=== PATIENT | female | born 1985 | race Caucasian/White ===

== ENCOUNTER → 2020-07-25 15:33 | Outpatient (CLI) | payer OTHER, SELFPAY ==
[2020-07-25] MEDS: COVID-19 VACC #1, MRNA(MOD) 100 MCG/0.5 ML VIAL IM (15:38)
== END ==
PROVIDERS: Visit Provider Internal Medicine
DX: Z23 Encounter for immunization (principal)
CPT/HCPCS: 0011A; 91301

== ENCOUNTER → 2020-08-22 15:47 | Outpatient (CLI) | payer OTHER, SELFPAY ==
[2020-08-22] MEDS: COVID-19 VACC #2, MRNA(MOD) 100 MCG/0.5 ML VIAL IM (16:00)
== END ==
PROVIDERS: Visit Provider Internal Medicine
DX: Z23 Encounter for immunization (principal)
CPT/HCPCS: 0012A; 91301

== ENCOUNTER → 2021-02-07 07:20 | Outpatient (CLI) | payer OTHER, SELFPAY | PROVIDERS: Visit Provider Physician Assistant | DX: R30.0 Dysuria (principal); R39.15 Urgency of urination | CPT/HCPCS: 87077; 87086; 87186 ==

== ENCOUNTER → 2022-05-13 11:45 | Outpatient (CLI) | payer OTHER, SELFPAY ==
[2022-05-13 13:09] LABS: Alanine Aminotransferase 18 IU/L (<35); Albumin 4.4 g/dL (3.5-5.0); Albumin Globulin Ratio 1.4 (1.0-2.8); Alkaline Phosphatase 47 U/L (38-126); Aspartate Aminotransferase 19 IU/L (14-36); Bilirubin Total 0.4 mg/dL (0.2-1.3); Bilirubin Unconjugated 0.3 mg/dL (0.0-1.1); Globulin 3.1 g/dL (1.7-4.1); HEMOLYSIS < 15 (0-50); Total Protein 7.5 g/dL (6.3-8.2)
== END ==
PROVIDERS: PCP Registered Nurse Diabetes Educator; Referring Provider Registered Nurse Diabetes Educator; Visit Provider Registered Nurse Diabetes Educator
DX: B35.1 Tinea unguium (principal)
CPT/HCPCS: 36415; 80076

== ENCOUNTER → 2023-10-16 20:12 | Outpatient (ROUT) | payer OTHER, SELFPAY | PROVIDERS: PCP Registered Nurse Diabetes Educator; Visit Provider Nurse Practitioner Family | DX: J02.9 Acute pharyngitis, unspecified (principal) | CPT/HCPCS: 87070 ==

== ENCOUNTER → 2024-05-17 19:27 | Outpatient (CLI) | payer BC, SELFPAY ==
[2024-05-17 20:09] LABS: Influenza A - CEPHEID Flu A NEGATIVE (NEGATIVE); Influenza B - CEPHEID Flu B NEGATIVE (NEGATIVE); Respiratory Syncytial Virus Negative (Negative)
[2024-05-17 20:10] LABS: COVID-19 CEPHEID 4-PLEX PCR Negative (Negative)
== END ==
PROVIDERS: PCP Registered Nurse Diabetes Educator; Visit Provider Student in an Organized Health Care Education/Training Program
DX: R05.8 Other specified cough (principal); R53.83 Other fatigue
CPT/HCPCS: 0241U

== ENCOUNTER → 2024-05-19 12:30 | Outpatient (CLI) | payer BC, SELFPAY ==
--- NOTE | 2024-05-19 12:31 | DI.RAD.S_ITS ---
PROCEDURE: XR CHEST 2V INDICATIONS: r/o PNA TECHNIQUE: 2 views of the chest were acquired. COMPARISON: None. FINDINGS: Surgical changes and devices: None. Lungs and pleura: Mild peribronchial thickening. No dense consolidation or pleural effusions. Mediastinum: Normal heart size Bones and chest wall: Unremarkable IMPRESSION: Mild peribronchial thickening likely viral infection. No consolidation or pleural effusion identified. Dictated by: Ethan Vargas M.D. on 05/19/2024 at 12:54 Approved by: Ethan Vargas M.D. on 05/19/2024 at 12:55
== END ==
PROVIDERS: PCP Registered Nurse Diabetes Educator; Referring Provider Student in an Organized Health Care Education/Training Program; Visit Provider Student in an Organized Health Care Education/Training Program
DX: R05.1 Acute cough (principal)
CPT/HCPCS: 71046

== ENCOUNTER → 2024-07-12 18:09 | Outpatient (CLI) | payer OTHER, SELFPAY | PROVIDERS: PCP Registered Nurse Diabetes Educator; Visit Provider Student in an Organized Health Care Education/Training Program | DX: R30.0 Dysuria (principal) | CPT/HCPCS: 87077; 87086; 87186 ==

== ENCOUNTER 2024-10-06 21:54 | Outpatient (CLI) | payer OTHER, SELFPAY | END 2024-10-06 22:40 | disposition home or self-care (01) | LOC: OB 10-09 16:38 | PROVIDERS: PCP Registered Nurse Diabetes Educator; Referring Provider Family Medicine; Visit Provider Family Medicine | DX: O36.8120 Decreased fetal movements, second trimester, not applicable or unspecified (principal); O09.522 Supervision of elderly multigravida, second trimester; O44.02 Complete placenta previa NOS or without hemorrhage, second trimester; Z3A.23 23 weeks gestation of pregnancy | CPT/HCPCS: 59025; G0378; G0379 ==